=== PATIENT | female | born 1950 ===

== ENCOUNTER 2025-06-11 17:55 | Emergency (ER) | payer MEDICARE, BC ==
[~2025-06-11] VITALS: Ht 152.4 cm; Wt 42.2 kg
[2025-06-11 19:05] LABS: PLATELET COUNT (AUTO) 159 K/uL (179-408); RED BLOOD CELL COUNT(AUTO) 4.28 MIL/uL (3.63-4.92); RED CELL DISTRIBUTION WIDTH 13.4 % (12.3-17.7); WHITE BLOOD COUNT (AUTO) 3.8 K/uL (3.8-11.8)
[2025-06-11] MEDS ORDERED: ONDANSETRON 4 MG/2 ML VIAL ONE ×2 (19:10→19:12)
[2025-06-11] MEDS: IV NORMAL SALINE 1000 ML BAG IV ONE (19:11)
[2025-06-11] MEDS: ONDANSETRON 4 MG/2 ML VIAL IV ONE (19:16)
[2025-06-11 19:22] LABS: *BILIRUBIN,URIN NEGATIVE (NEGATIVE); *BLOOD, URINE 2+ (NEGATIVE); *CLARITY,URINE CLEAR (CLEAR); *COLOR,URINE YELLOW (YELLOW); *KETONES,URINE 4+ (NEGATIVE); *PROTEIN,URINE TRACE (NEGATIVE); *UROBILINOGEN,URINE 0.2 E.U./dl (NORMAL); LEUKOCYTE ESTERASE ,URINE NEGATIVE (NEGATIVE); NITRITE, URINE NEGATIVE (NEGATIVE); UGLUCOSE TRACE (NEGATIVE)
[2025-06-11 19:43] LABS: ASPARTATE AMINOTRANSFERASE 53 U/L (15-37); CREATININE 0.6 mg/dL (0.6-1.3); SODIUM SERUM 137 mmol/L (136-145); TOTAL PROTEIN, SERUM 7.3 g/dL (6.4-8.2); UREA NITROGEN, BLOOD 15 mg/dL (7-18)
[2025-06-11] MEDS ORDERED: METOCLOPRAMIDE HCL 10 MG/2 ML VIAL ONE (19:58)
[2025-06-11] MEDS ORDERED: diphenhydrAMINE 50 MG/1 ML VIAL ONE (19:58)
[2025-06-11 20:00] VITALS: BP 139/65
[2025-06-11 20:05] LABS: SQUAMOUS EPITHELIAL CELL,UR FEW /HPF (NONE SEEN)
[2025-06-11] MEDS: diphenhydrAMINE 50 MG/1 ML VIAL IV ONE (20:09)
[2025-06-11] MEDS: METOCLOPRAMIDE HCL 10 MG/2 ML VIAL IV ONE (20:09)
[2025-06-11 20:55] VITALS: BP 125/64; O2SAT 98
[2025-06-11] MEDS ORDERED: PROC25SU2 RC (20:57)
[2025-06-11] MEDS ORDERED: ONDA-243 PO (20:57)
== END 2025-06-11 21:00 | disposition home or self-care (01) ==
LOC: ER 18:10
DX: R11.2 Nausea with vomiting, unspecified (principal); J10.1 Influenza due to other identified influenza virus with other respiratory manifestations; R42 Dizziness and giddiness; Z86.2 Personal history of diseases of the blood and blood-forming organs and certain disorders involving the immune mechanism; Z20.822 Contact with and (suspected) exposure to COVID-19
CPT/HCPCS: 99285; 96374; 96375; 71045; 96361; 87426; 87804 ×2; 80076; 80048; 81001; 85025; 85730; 87040; 36415; 93005 ×2; 83605; J1200; J2765; J2405 ×2; J7040 ×2; A4606; A4663